=== PATIENT | female | born 2000 | race African-American/Black ===

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

== ENCOUNTER 2018-02-11 15:46 | Emergency (ER) | payer MEDICAID ==
--- NOTE | 2018-02-11 16:09 | ER Document Report ---
ED Medical Screen (RME) - General Chief Complaint: Abdominal Pain Stated Complaint: ABDOMINAL PAIN Time Seen by Provider: 02/11/18 16:04 Notes: 17-year-old female patient states after she went to eat last night, she developed epigastric pain going down into her lower abdomen on both sides. She also reports the pain was on the left mid abdomen going down into the pelvic region. She states she vomited twice with the last episode sometime today but she does not know when. She also does not know when the pain started last night. She states eating makes the pain worse and makes the nausea worse. I have greeted and performed a rapid initial assessment of this patient. A comprehensive ED assessment and evaluation of the patient, analysis of test results and completion of the medical decision making process will be conducted by additional ED providers. TRAVEL OUTSIDE OF THE [place] IN LAST 30 DAYS: No - Related Data Allergies/Adverse Reactions: No Known Allergies Allergy (Verified 02/11/18 15:47) Past Medical History - Social History Frequency of alcohol use: None Drug Abuse: None Renal/ Medical History: Denies: Hx Peritoneal Dialysis Psychiatric Medical History: Reports: Hx Depression - Immunizations Immunizations up to date: Yes Hx Diphtheria, Pertussis, Tetanus Vaccination: Yes Physical Exam - Vital signs Vitals: Temp Pulse Resp BP Pulse Ox 98.5 F 72 14 116/77 100 02/11/18 15:50 02/11/18 15:50 02/11/18 15:50 02/11/18 15:50 02/11/18 15:50 Course - Vital Signs Vital signs: Temp Pulse Resp BP Pulse Ox 98.5 F 72 14 116/77 100 02/11/18 15:50 02/11/18 15:50 02/11/18 15:50 02/11/18 15:50 02/11/18 15:50 Doctor's Discharge - Discharge Referrals: LANDRY LYNN MD [Primary Care Provider] - Follow up as needed
[2018-02-11 16:38] LABS: ABSOLUTE BASOPHILS # (AUTO) 0.1 10^3/uL (0.0-0.2); ABSOLUTE EOSINOPHILS # (AUTO) 0.1 10^3/uL (0.0-0.6); ABSOLUTE LYMPHOCYTES (AUTO) 1.9 10^3/uL (0.5-4.7); ABSOLUTE MONOCYTES (AUTO) 0.5 10^3/uL (0.1-1.4); BASOPHILS % (AUTO) 0.8 % (0-2); EOSINOPHILS % (AUTO) 1.2 % (0-6); HEMATOCRIT 38.2 % (36.0-47.0); MEAN CORPUSCULAR HEMOGLOBIN 31.1 pg (27.0-33.4); MEAN CORPUSCULAR HGB CONC 33.9 g/dL (32.0-36.0); MEAN CORPUSCULAR VOLUME 92 fl (80-97); MONOCYTES % (AUTO) 7.3 % (3-13); PLATELET COUNT 248 10^3/uL (150-450); RED BLOOD COUNT 4.17 10^6/uL (3.72-5.28); RED CELL DISTRIBUTION WIDTH 12.3 % (11.5-14.0); SEGMENTED NEUTROPHILS % (AUTO) 61.7 % (42-78); TOTAL CELLS COUNTED % (AUTO) 100 %; WHITE BLOOD COUNT 6.5 10^3/uL (4.0-10.5)
[2018-02-11 16:48] LABS: APPEARANCE,URINE SLIGHTLY-CLOUDY; BILIRUBIN,URINE NEGATIVE (NEGATIVE); COLOR,URINE YELLOW; GLUCOSE, URINE NEGATIVE (NEGATIVE); KETONES,URINE NEGATIVE (NEGATIVE); LEUKOCYTE ESTERASE,URINE TRACE (NEGATIVE); NITRITE,URINE NEGATIVE (NEGATIVE); PROTEIN,URINE NEGATIVE (NEGATIVE); URINE SPECIFIC GRAVITY 1.021
--- NOTE | 2018-02-11 16:48 | ER Document Report ---
ED GI/ - General Chief Complaint: Abdominal Pain Stated Complaint: ABDOMINAL PAIN Time Seen by Provider: 02/11/18 16:04 Notes: Patient says that she is having pain in her abdomen since yesterday night. She points to the left upper quadrant as the main location of her pain although she does have some across to the right upper quadrant and some into the left lower quadrant. She says that she thinks she has food poisoning because she had similar symptoms once before when she was diagnosed with food poisoning. She says that she ate a "bunch of fast food yesterday" and some of the chicken she ate at 1 of the places did not taste right. She is vomited a couple times and feels nauseated. Has not had any diarrhea. Not noticed any blood in her stools or in her vomitus. Her last bowel movement was yesterday. Has not noted any fever. Patient is on Depo shots for control and is due her injection Tuesday. No abdominal surgeries in the past. On no regular prescription medications for anything. TRAVEL OUTSIDE OF THE [place] IN LAST 30 DAYS: No - Related Data Allergies/Adverse Reactions: No Known Allergies Allergy (Verified 02/11/18 15:47) Past Medical History - Social History Smoking Status: Never Smoker Frequency of alcohol use: None Drug Abuse: None Family History: Reviewed & Not Pertinent Patient has suicidal ideation: No Patient has homicidal ideation: No Psychiatric Medical History: Reports: Hx Depression - Immunizations Immunizations up to date: Yes Hx Diphtheria, Pertussis, Tetanus Vaccination: Yes Review of Systems - Review of Systems Notes: REVIEW OF SYSTEMS: CONSTITUTIONAL : Denies fever. EENT: Denies eye, ear, nose or mouth or throat pain or other symptoms. CARDIOVASCULAR: Denies chest pain. RESPIRATORY: Denies cough, chest congestion, or shortness of breath. GASTROINTESTINAL: see HPI. GENITOURINARY: Denies difficulty or painful urinating, urinary frequency, blood in urine. Says she "pees a lot". MUSCULOSKELETAL: Denies back or neck pain. Denies joint pain or swelling. SKIN: Denies rash or skin lesions. NEUROLOGICAL: Denies LOC or altered mental status. Denies headache. Denies sensory loss or motor deficits. ALL OTHER SYSTEMS REVIEWED AND NEGATIVE. Physical Exam - Vital signs Vitals: Temp Pulse Resp BP Pulse Ox 98.5 F 72 14 116/77 100 02/11/18 15:50 02/11/18 15:50 02/11/18 15:50 02/11/18 15:50 02/11/18 15:50 Interpretation: Normal - Notes Notes: PHYSICAL EXAMINATION: GENERAL: Well-appearing, in no acute distress. In fact, patient looks extremely well. Smiling and pleasant. Vital signs are all normal. HEAD: Atraumatic, normocephalic. EYES: Pupils equal round and reactive to light, extraocular movements intact. ENT: oropharynx clear without exudates. Moist mucous membranes. NECK: Normal range of motion, supple. LUNGS: Breath sounds clear and equal bilaterally. HEART: Regular rate and rhythm without murmurs. ABDOMEN: Soft, nontender. Bowel sounds are present throughout. No guarding or rebound. No masses felt. Spleen not palpated and not tender under the costal margin in the left upper quadrant. BACK: No tenderness throughout entire back. EXTREMITIES: Normal range of motion without pain. NEUROLOGICAL: Normal speech, normal gait. Normal sensory, motor, and reflex exams. Awake, alert, and oriented x3. Cranial nerves normal. PSYCH: Normal mood, normal affect. SKIN: Warm, dry, no rashes. Course - Re-evaluation Re-evalutation: 02/11/18 17:42 Labs were all essentially normal, consistent with this patient's normal examination and nothing abnormal in her workup. We will give her some Bentyl to see if that helps the abdominal pain she is having. Do not feel patient has food poisoning. - Vital Signs Vital signs: Temp Pulse Resp BP Pulse Ox 99.3 F 81 16 106/65 100 02/11/18 17:50 02/11/18 17:50 02/11/18 17:50 02/11/18 17:50 02/11/18 17:50 - Laboratory Result Diagrams: 02/11/18 16:24 02/11/18 16:24 Laboratory results interpreted by me: 02/11/18 02/11/18 16:24 16:24 Alkaline Phosphatase 43 L Urine Urobilinogen 4.0 H Ur Leukocyte Esterase TRACE H Discharge - Discharge Clinical Impression: Abdominal pain Condition: Stable Disposition: HOME, SELF-CARE Additional Instructions: ABDOMINAL PAIN: There are many causes of abdominal pain. Pain can mean a serious problem requiring surgery (such as appendicitis). It can also be an innocent problem that goes away on its own (such as a viral infection). Often, time must pass to determine the cause of pain. The physician does not feel that hospitalization is necessary, at present. Things may change within the next 24 hours. Call the doctor or come back for re- examination if any problems occur, such as: (1) Pain that becomes more severe, steady, or becomes concentrated in one specific area. Also, pain that is more severe with movement or coughing. (2) Vomiting that persists or becomes more frequent. (3) Blood in the vomitus, urine, or bowel movements. Blood in the stool may have a tarry or black appearance. (4) Shaking chills or fever greater than 100 degrees F. (5) The abdomen becomes more distended or swollen. (6) Bowel movements cease. (7) Failure to improve as expected. NORMAL EXAM AND WORKUP: At this time, your examination and workup show no significant abnormality. No significant abnormal physical findings are noted. All laboratory, EKG, and imaging (x-ray, CT scans, ultrasound) studies that were ordered show no significant abnormality. Although your examination and all studies that were ordered showed no significant abnormal finding, there are no examinations and no studies that are 100% accurate. There is always the possibility that some abnormality could exist and not be detected with physical examination or within the limits and capabilities of laboratory and other studies. You should return or follow up as you were instructed on your visit today for further evaluation if your symptoms do not resolve. ANTISPASMODICS: You have been given a prescription for an antispasmodic medicine. This type of drug is used to decrease cramping and pain in the intestines. It is also used to decrease secretion of internal fluids (such as stomach acid in ulcer disease or pancreatic juice in pancreas disease). This medicine may cause drowsiness, especially with the first dose. Do not operate machinery or drive until all side effects have resolved. Do not combine with alcohol. Other common side effects include dry mouth and eyes. In older persons, antispasmodics can occasionally cause urinary retention, constipation, or trouble focusing the eyes. Glaucoma may be worsened by this medicine. FOLLOW-UP CARE: If you have been referred to a physician for follow-up care, call the physician s office for an appointment as you were instructed or within the next two days. If you experience worsening or a significant change in your symptoms, notify the physician immediately or return to the Emergency Department at any time for re-evaluation. Prescriptions: Dicyclomine HCl [Bentyl 20 mg Tablet] 40 mg PO QIDP PRN #20 tablet PRN Reason: Referrals: LANDRY LYNN MD [Primary Care Provider] - Follow up as needed
[2018-02-11 17:04] LABS: ALANINE AMINOTRANSFERASE 16 U/L (5-35); ALBUMIN 4.6 g/dL (3.7-5.6); ALKALINE PHOSPHATASE 43 U/L (50-135); ANION GAP 13 (5-19); ASPARTATE AMINO TRANSFERASE 21 U/L (5-30); BILIRUBIN,DIRECT 0.3 mg/dL (0.0-0.4); BILIRUBIN,TOTAL 0.7 mg/dL (0.2-1.3); BLOOD UREA NITROGEN 11 mg/dL (7-20); CALCIUM 9.7 mg/dL (8.4-10.2); CARBON DIOXIDE 26 mmol/L (22-30); CHLORIDE 103 mmol/L (98-107); GLUCOSE 83 mg/dL (75-110); LIPASE 38.9 U/L (23-300); POTASSIUM 4.2 mmol/L (3.6-5.0); SODIUM 142.3 mmol/L (137-145); TOTAL PROTEIN 7.9 g/dL (6.3-8.2)
[2018-02-11] MEDS ORDERED: DICYCLOMINE HCL 20 MG TABLET PO ONE (17:41)
[2018-02-11 17:55] VITALS: BP 106/65
== END 2018-02-11 17:55 | disposition home or self-care (01) ==
LOC: ER 15:46
DX: R10.12 Left upper quadrant pain (principal); R11.2 Nausea with vomiting, unspecified
CPT/HCPCS: 99284; 36415; 83690; 84703; 85025; 80053; 81001; J3490

== ENCOUNTER 2018-02-11 20:23 | Emergency (ER) | payer MEDICAID ==
--- NOTE | 2018-02-11 22:55 | ER Document Report ---
ED General - General Chief Complaint: Allergic Reaction Stated Complaint: POSSIBLE ALLERGIC REACTION Time Seen by Provider: 02/11/18 22:51 Notes: Patient is a 17-year-old female that presents to the emergency department for chief complaint of medication reaction. Patient states that she was in the emergency department earlier today, was given Bentyl, medications she is never had before. After leaving the hospital, she felt hot flashes, and felt like she was "floating". She received the medication around 5 PM this evening. She denies noting any rashes, throat swelling, shortness of breath, wheezing, chest pain, nausea, or vomiting. She just states that she feels "off". She denies being confused, or having any headache. Past Medical History: Denies chronic medical conditions Past Surgical History: Denies surgical history Social History: Denies tobacco, alcohol or drug use Family History: Reviewed and noncontributory for presenting illness Allergies: Reviewed, see documented allergy list. REVIEW OF SYSTEMS: Other than noted above, the 12 point review of systems was reviewed with the patient and were negative, all pertinent findings are included in the HPI. PHYSICAL EXAMINATION: Vital signs reviewed, nursing noted reviewed. GENERAL: Well-appearing, well-nourished and in no acute distress. HEAD: Atraumatic, normocephalic. EYES: Eyes appear normal, extraocular movements intact, sclera anicteric, conjunctiva are normal. ENT: nares patent, oropharynx clear without exudates. Moist mucous membranes. NECK: Normal range of motion, supple without lymphadenopathy LUNGS: Breath sounds clear to auscultation bilaterally and equal. No wheezes rales or rhonchi. HEART: Regular rate and rhythm without murmurs ABDOMEN: Soft, nontender, normoactive bowel sounds. No rebound, guarding, or rigidity. No masses appreciated. EXTREMITIES: Nontender, good range of motion, no pitting or edema. NEUROLOGICAL: No focal neurological deficits. Moves all extremities spontaneously Motor and sensory grossly intact on exam. PSYCH: Normal mood, normal affect. SKIN: Warm, Dry, normal turgor, no rashes or lesions noted on exposed skin TRAVEL OUTSIDE OF THE [place] IN LAST 30 DAYS: No - Related Data Allergies/Adverse Reactions: dicyclomine [From Bentyl] Allergy (Verified 02/11/18 23:08) Past Medical History - Social History Smoking Status: Never Smoker Family History: Reviewed & Not Pertinent Patient has suicidal ideation: No Patient has homicidal ideation: No Renal/ Medical History: Denies: Hx Peritoneal Dialysis Psychiatric Medical History: Reports: Hx Depression - Immunizations Immunizations up to date: Yes Hx Diphtheria, Pertussis, Tetanus Vaccination: Yes Physical Exam - Vital signs Vitals: Temp Pulse Resp BP Pulse Ox 97.5 F 64 18 124/76 100 02/11/18 20:31 02/11/18 20:31 02/11/18 20:31 02/11/18 20:31 02/11/18 20:31 Course - Re-evaluation Re-evalutation: Patient seen and examined, appears well, no focal findings. No rashes, no wheezing, uvula midline, and not edematous. She was advised that this medication should be out of her system rather quickly, and that her symptoms should resolve, she is given a Zofran 4 mg ODT number 6 tablets to go home with , to help with her nausea and vomiting symptoms she was having earlier today, she is advised not to fill any prescription for Bentyl or take any of that medication, which she was agreeable to. Advised if her symptoms worsen in any way that she should return to the emergency department. - Vital Signs Vital signs: Temp Pulse Resp BP Pulse Ox 97.6 F 65 16 126/79 H 99 02/11/18 23:09 02/11/18 23:09 02/11/18 23:09 02/11/18 23:09 02/11/18 23:09 Discharge - Discharge Clinical Impression: Medication reaction Qualifiers: Encounter type: initial encounter Qualified Code(s): T50.905A - Adverse effect of unspecified drugs, medicaments and biological substances, initial encounter Condition: Stable Disposition: HOME, SELF-CARE Instructions: Medication Side Effects ([facility]) Additional Instructions: Discontinue taking the Bentyl that was prescribed to you, if you are having nausea you can take the Zofran, that was dispensed from the emergency department , please follow-up with a primary care physician. Referrals: LANDRY LYNN MD [Primary Care Provider] - Follow up in 3-5 days
[2018-02-11] MEDS ORDERED: ONDANSETRON ODT 4 MG TAB (6 TAB/ER DISP) PO PRN (22:56)
[2018-02-11 23:10] VITALS: BP 126/79
== END 2018-02-11 23:09 | disposition home or self-care (01) ==
LOC: ER 20:23
DX: T50.905A Adverse effect of unspecified drugs, medicaments and biological substances, initial encounter (principal); X58.XXXA Exposure to other specified factors, initial encounter
CPT/HCPCS: 99283

== ENCOUNTER 2018-05-12 11:38 | Emergency (ER) | payer MEDICAID ==
[2018-05-12] MEDS ORDERED: LIDOCAINE 2% VISCOUS SOLN 20 ML UDCUP PO ONE (14:05)
[2018-05-12] MEDS ORDERED: METOCLOPRAMIDE HCL ORAL SOLN 10 MG/10 ML UDCUP PO ONE (14:05)
[2018-05-12] MEDS ORDERED: MAG HYDROX/AL HYDROX/SIMETH SUSP 30 ML UDCUP PO ONE (14:05)
--- NOTE | 2018-05-12 14:07 | ER Document Report ---
ED Medical Screen (RME) - General Chief Complaint: Abdominal Pain Stated Complaint: HEADACHE,ABDOMINAL PAIN Time Seen by Provider: 05/12/18 13:58 Primary Care Provider: LANDRY LYNN MD [Primary Care Provider] - Follow up as needed Mode of Arrival: Ambulatory Information source: Patient Notes: 18-year-old female presents the emergency department with complaints of left upper quadrant and epigastric abdominal pain and chest pain. Patient states that her symptoms started this morning. Patient describes her left upper quadrant abdominal pain as a "hurt". She denies any radiation. No alleviating or exacerbating factors. Her chest pain is located in the center of the chest. It is a sharp stabbing sensation. It is constant. No alleviating or exacerbating factors. She denies any nausea, vomiting, diarrhea, constipation, dysuria, hematuria. Her last menstrual period was in April. Patient states that she is on oral contraceptives. I have greeted and performed a rapid initial assessment of this patient. A comprehensive ED assessment and evaluation of the patient, analysis of test results and completion of the medical decision making process will be conducted by additional ED providers. PHYSICAL EXAMINATION: GENERAL: Well-appearing, well-nourished and in no acute distress. HEAD: Atraumatic, normocephalic. EYES: Pupils equal round extraocular movements intact, conjunctiva are normal. ENT: Nares patent NECK: Normal range of motion LUNGS: No respiratory distress Musculoskeletal: Normal range of motion NEUROLOGICAL: Normal speech, normal gait. PSYCH: Normal mood, normal affect. SKIN: Warm, Dry, normal turgor, no rashes or lesions noted. TRAVEL OUTSIDE OF THE [place] IN LAST 30 DAYS: No - Related Data Allergies/Adverse Reactions: No Known Allergies Allergy (Unverified 05/12/18 13:51) Past Medical History - Social History Chew tobacco use (# tins/day): No - pt reports she vapes somedays Frequency of alcohol use: None Drug Abuse: None - Past Medical History Cardiac Medical History: Reports: Hx Hypercholesterolemia Renal/ Medical History: Denies: Hx Peritoneal Dialysis Psychiatric Medical History: Reports: Hx Depression - Immunizations Immunizations up to date: Yes Hx Diphtheria, Pertussis, Tetanus Vaccination: Yes Physical Exam - Vital signs Vitals: Temp Pulse Resp BP Pulse Ox 98.2 F 76 16 122/68 100 05/12/18 11:42 05/12/18 11:42 05/12/18 11:42 05/12/18 11:42 05/12/18 11:42 Course - Vital Signs Vital signs: Temp Pulse Resp BP Pulse Ox 98.2 F 76 16 122/68 100 05/12/18 11:42 05/12/18 11:42 05/12/18 11:42 05/12/18 11:42 05/12/18 11:42 Doctor's Discharge - Discharge Referrals: LANDRY LYNN MD [Primary Care Provider] - Follow up as needed
[2018-05-12 15:22] LABS: ABSOLUTE BASOPHILS # (AUTO) 0.1 10^3/uL (0.0-0.2); ABSOLUTE EOSINOPHILS # (AUTO) 0.1 10^3/uL (0.0-0.6); ABSOLUTE LYMPHOCYTES (AUTO) 1.8 10^3/uL (0.5-4.7); ABSOLUTE MONOCYTES (AUTO) 0.2 10^3/uL (0.1-1.4); HEMATOCRIT 38.9 % (36.0-47.0); HEMOGLOBIN 13.2 g/dL (12.0-15.5); LYMPHOCYTES % (AUTO) 34.7 % (13-45); MEAN CORPUSCULAR HEMOGLOBIN 30.9 pg (27.0-33.4); MEAN CORPUSCULAR VOLUME 91 fl (80-97); MONOCYTES % (AUTO) 4.8 % (3-13); PLATELET COUNT 276 10^3/uL (150-450); RED BLOOD COUNT 4.28 10^6/uL (3.72-5.28); SEGMENTED NEUTROPHILS % (AUTO) 58.5 % (42-78); TOTAL CELLS COUNTED % (AUTO) 100 %; WHITE BLOOD COUNT 5.2 10^3/uL (4.0-10.5)
--- NOTE | 2018-05-12 15:41 | RADIOLOGY REPORT (SQ) ---
EXAM DESCRIPTION: CHEST 2 VIEWS COMPLETED DATE/TIME: 05/12/2018 3:15 pm REASON FOR STUDY: chest pain COMPARISON: None. TECHNIQUE: Frontal and lateral radiographic views of the chest acquired. NUMBER OF VIEWS: Two view. LIMITATIONS: None. FINDINGS: LUNGS AND PLEURA: No opacities, masses or pneumothorax. No pleural effusion. MEDIASTINUM AND HILAR STRUCTURES: No masses or contour abnormalities. HEART AND VASCULAR STRUCTURES: Heart normal size. No evidence for failure. BONES: No acute findings. HARDWARE: None in the chest. OTHER: No other significant finding. IMPRESSION: NO SIGNIFICANT RADIOGRAPHIC FINDING IN THE CHEST. TECHNICAL DOCUMENTATION: JOB ID: [id number] [employer]- All Rights Reserved Reading location - IP/workstation name: [email or web address]
[2018-05-12 15:47] LABS: ALANINE AMINOTRANSFERASE 27 U/L (9-52); ALBUMIN 4.6 g/dL (3.5-5.0); ALKALINE PHOSPHATASE 53 U/L (38-126); ANION GAP 11 (5-19); ASPARTATE AMINO TRANSFERASE 21 U/L (14-36); BILIRUBIN,DIRECT 0.1 mg/dL (0.0-0.4); BILIRUBIN,TOTAL 0.7 mg/dL (0.2-1.3); BLOOD UREA NITROGEN 11 mg/dL (7-20); CALCIUM 9.6 mg/dL (8.4-10.2); CARBON DIOXIDE 26 mmol/L (22-30); CHLORIDE 105 mmol/L (98-107); GLUCOSE 80 mg/dL (75-110); LIPASE 30.1 U/L (23-300); POTASSIUM 3.9 mmol/L (3.6-5.0); SODIUM 141.6 mmol/L (137-145); TOTAL PROTEIN 7.6 g/dL (6.3-8.2)
[2018-05-12 15:56] LABS: APPEARANCE,URINE CLEAR; BILIRUBIN,URINE NEGATIVE (NEGATIVE); COLOR,URINE YELLOW; GLUCOSE, URINE NEGATIVE (NEGATIVE); KETONES,URINE NEGATIVE (NEGATIVE); LEUKOCYTE ESTERASE,URINE NEGATIVE (NEGATIVE); NITRITE,URINE NEGATIVE (NEGATIVE); PROTEIN,URINE NEGATIVE (NEGATIVE); URINE SPECIFIC GRAVITY 1.018
[2018-05-12] MEDS ORDERED: DICYCLOMINE HCL 10 MG CAPSULE PO ONE (16:24)
[2018-05-12] MEDS ORDERED: ONDANSETRON 4 MG TAB.RAPDIS PO ONE (16:26)
--- NOTE | 2018-05-12 16:27 | ER Document Report ---
ED General - General Chief Complaint: Abdominal Pain Stated Complaint: HEADACHE,ABDOMINAL PAIN Time Seen by Provider: 05/12/18 13:58 Primary Care Provider: LANDRY LYNN MD [Primary Care Provider] - Follow up as needed Mode of Arrival: Ambulatory Information source: Patient, [facility] Records Notes: 18-year-old female presents the emergency department with complaints of left upper quadrant and epigastric abdominal pain and chest pain. Patient states that her symptoms started this morning. Upon further questioning patient states that the symptoms have been going on for "years". Patient describes her left upper quadrant abdominal pain as a "hurt". She denies any radiation. No alleviating or exacerbating factors. Her chest pain is located in the center of the chest. It is a sharp stabbing sensation. It is constant. No alleviating or exacerbating factors. She denies any nausea, vomiting, diarrhea, constipation, dysuria, hematuria. Her last menstrual period was in April. Patient states that she is on oral contraceptives. TRAVEL OUTSIDE OF THE [place] IN LAST 30 DAYS: No - HPI Onset: Other Onset/Duration: Intermittent Quality of pain: Sharp Severity: Mild Associated symptoms: Chest pain, Other - Abdominal pain. denies: Fever, Nausea, Vomiting Exacerbated by: Denies Relieved by: Denies Similar symptoms previously: Yes Recently seen / treated by doctor: No - Related Data Allergies/Adverse Reactions: No Known Allergies Allergy (Unverified 05/12/18 13:51) Past Medical History - General Information source: Patient - Social History Smoking Status: Current Some Day Smoker Chew tobacco use (# tins/day): No - pt reports she vapes somedays Frequency of alcohol use: None Drug Abuse: None Lives with: Family Family History: Reviewed & Not Pertinent Patient has suicidal ideation: No Patient has homicidal ideation: No - Past Medical History Cardiac Medical History: Reports: Hx Hypercholesterolemia Renal/ Medical History: Denies: Hx Peritoneal Dialysis Psychiatric Medical History: Reports: Hx Depression - Immunizations Immunizations up to date: Yes Hx Diphtheria, Pertussis, Tetanus Vaccination: Yes Review of Systems - Review of Systems Notes: REVIEW OF SYSTEMS: CONSTITUTIONAL : Denies fever, chills, or sweats. Denies recent illness. Denies weight loss, recent hospitalizations. EENT: Denies visual changes, eye pain. Denies sore throat, oral lesions, difficulty swallowing. CARDIOVASCULAR: Denies palpitations. Denies lower extremity edema. RESPIRATORY: Denies cough. Denies shortness of breath, wheezing. GASTROINTESTINAL: Denies abdominal distention. Denies nausea, vomiting, or diarrhea. Denies blood in vomitus, stools, or per rectum. Denies black, tarry stools. Denies constipation. GENITOURINARY: Denies difficulty urinating, painful urination, frequency, blood in urine, or vaginal discharge. MUSCULOSKELETAL: Denies back or neck pain or stiffness. Denies joint pain or swelling. SKIN: Denies rash, lesions or sores. HEMATOLOGIC : Denies easy bruising or bleeding. LYMPHATIC: Denies swollen glands. NEUROLOGICAL: Denies confusion or altered mental status. Denies loss of consciousness. Denies dizziness or lightheadedness. Denies headache. Denies weakness or paralysis. Denies problems difficulty with ambulation, slurred speech. Denies sensory loss, numbness, or tingling. Denies seizures. PSYCHIATRIC: Denies anxiety or stress. Denies depression, suicidal ideation, or homicidal ideation. Denies visual or auditory hallucinations. Physical Exam - Vital signs Vitals: Temp Pulse Resp BP Pulse Ox 98.2 F 76 16 122/68 100 05/12/18 11:42 05/12/18 11:42 05/12/18 11:42 05/12/18 11:42 05/12/18 11:42 - Notes Notes: PHYSICAL EXAMINATION: GENERAL: Well-appearing, well-nourished and in no acute distress. HEAD: Atraumatic, normocephalic. EYES: Pupils equal round and reactive to light, extraocular movements intact, conjunctiva are normal. ENT: Nares patent, oropharynx clear without exudates. Moist mucous membranes. NECK: Normal range of motion, supple without lymphadenopathy LUNGS: Breath sounds clear to auscultation bilaterally and equal. No wheezes rales or rhonchi. Reproducible anterior chest wall tenderness. HEART: Regular rate and rhythm without murmurs ABDOMEN: Tenderness with palpation to the epigastrium. No guarding, no rebound. No masses appreciated. Female : deferred Musculoskeletal: Normal range of motion, no pitting or edema. No cyanosis. NEUROLOGICAL: Cranial nerves grossly intact. Normal speech, normal gait. N ormal sensory, motor exams PSYCH: Normal mood, normal affect. SKIN: Warm, Dry, normal turgor, no rashes or lesions noted. Course - Re-evaluation Re-evalutation: Laboratory 05/12/18 05/12/18 05/12/18 15:00 15:00 15:34 WBC 5.2 RBC 4.28 Hgb 13.2 Hct 38.9 MCV 91 MCH 30.9 MCHC 34.0 RDW 12.0 Plt Count 276 Seg Neutrophils % 58.5 Lymphocytes % 34.7 Monocytes % 4.8 Eosinophils % 1.0 Basophils % 1.0 Absolute Neutrophils 3.0 Absolute Lymphocytes 1.8 Absolute Monocytes 0.2 Absolute Eosinophils 0.1 Absolute Basophils 0.1 Sodium 141.6 Potassium 3.9 Chloride 105 Carbon Dioxide 26 Anion Gap 11 BUN 11 Creatinine 0.55 Est GFR ( Amer) > 60 Est GFR (Non-Af Amer) > 60 Glucose 80 Calcium 9.6 Total Bilirubin 0.7 Direct Bilirubin 0.1 Neonat Total Bilirubin Not Reportable Neonat Direct Bilirubin Not Reportable Neonat Indirect Bili Not Reportable AST 21 ALT 27 Alkaline Phosphatase 53 Total Protein 7.6 Albumin 4.6 Lipase 30.1 Urine Color YELLOW Urine Appearance CLEAR Urine pH 6.0 Ur Specific [place] 1.018 Urine Protein NEGATIVE Urine Glucose (UA) NEGATIVE Urine Ketones NEGATIVE Urine Blood SMALL H Urine Nitrite NEGATIVE Urine Bilirubin NEGATIVE Urine Urobilinogen 2.0 H Ur Leukocyte Esterase NEGATIVE Urine WBC (Auto) 0 Urine RBC (Auto) 4 Squamous Epi Cells Auto 2 Urine Mucus (Auto) FEW Urine Ascorbic Acid NEGATIVE Urine HCG, Qual NEGATIVE Chest X-Ray 05/12/18 14:05 IMPRESSION: NO SIGNIFICANT RADIOGRAPHIC FINDING IN THE CHEST. Temp Pulse Resp BP Pulse Ox 98.4 F 77 15 126/66 H 99 05/12/18 16:52 05/12/18 16:52 05/12/18 16:52 05/12/18 16:52 05/12/18 16:52 18-year-old female presents with complaint of epigastric abdominal pain, chest pain that started this morning but has been ongoing intermittently for a few years. Patient has not reported this to her primary care physician. EKG was obtained and showed the patient to be in normal tray showed no acute process. CBC, CMP, lipase, urinalysis are unremarkable. Patient provided Bentyl and reports improvement of her pain. Patient advised that she needs to be seen by her primary care physician for referral to gastroenterology. Patient was reassured, provided a prescription for Bentyl and discharged home in stable condition. 05/12/18 22:53 05/12/18 22:54 - Vital Signs Vital signs: Temp Pulse Resp BP Pulse Ox 98.4 F 77 15 126/66 H 99 05/12/18 16:52 05/12/18 16:52 05/12/18 16:52 05/12/18 16:52 05/12/18 16:52 - Laboratory Result Diagrams: 05/12/18 15:00 05/12/18 15:00 Laboratory results interpreted by me: 05/12/18 15:34 Urine Blood SMALL H Urine Urobilinogen 2.0 H - Diagnostic Test Radiology reviewed: Image reviewed, Reports reviewed - EKG Interpretation by Me EKG shows normal: Sinus rhythm Rate: Normal Rhythm: NSR When compared to previous EKG there are: Previous EKG unavailable Discharge - Discharge Clinical Impression: Chronic abdominal pain, Chronic chest pain Condition: Good Disposition: HOME, SELF-CARE Instructions: Abdominal Pain ([facility]), Chest Wall Pain ([facility]) Additional Instructions: Please follow-up with your primary care physician. Follow up with your [id number] hours for further care or return to the ED IMMEDIATELY if symptoms worsen or you have any concerns. If you cannot afford to follow up with your primary care physician a list of low cost clinics have been provided at the end of your discharge papers as well. Most prescribed medications have multiple side effects. The safest thing to do is when filling your prescription speak to your pharmacist regarding possible interactions with your normal home medications and over the counter medications such as Ibuprofen, Tylenol, Benadryl. If you experience any symptoms that cause you discomfort or concern you should discontinue the medication immediately and return to the emergency room or call your primary care physician. Prescriptions: Dicyclomine HCl [Bentyl 10 mg Capsule] 1 cap PO TID #30 cap Referrals: LANDRY LYNN MD [Primary Care Provider] - Follow up as needed
[2018-05-12 16:54] VITALS: BP 126/66
--- NOTE | 2018-05-13 20:14 | EKG REPORT ---
SEVERITY:- OTHERWISE NORMAL ECG - SINUS RHYTHM BORDERLINE RIGHT AXIS DEVIATION : Confirmed by: Christine Mccabe 13-May-2018 20:12:45
== END 2018-05-12 16:52 | disposition home or self-care (01) ==
LOC: ER 11:38
DX: R10.13 Epigastric pain (principal); R10.12 Left upper quadrant pain; R07.9 Chest pain, unspecified; G89.29 Other chronic pain; F17.200 Nicotine dependence, unspecified, uncomplicated
CPT/HCPCS: 93005; 99284; 36415; 83690; 85025; 81025; 80053; 81001; 71046; 93010; J3490 ×4; S0119